=== PATIENT | female | born 1980 | race Caucasian/White ===

== ENCOUNTER 2017-06-28 17:54 | Emergency (ER) | payer MEDICAID ==
[2017-06-28] MEDS ORDERED: HYDROmorphone 1 MG/ML Syringe IVPUSH ONE (18:23)
[2017-06-28] MEDS ORDERED: Ondansetron 4 MG/2 ML SDV IVPUSH ONE ×2 (18:23→19:45)
--- NOTE | 2017-06-28 18:29 | EDM.PDOC ---
ED HPI GENERAL MEDICAL PROBLEM - General Chief Complaint: Abdominal Pain Stated Complaint: ABDOMINAL PAIN Time Seen by Provider: 06/28/17 18:26 Source of Information: Reports: Patient History Limitations: Reports: No Limitations - History of Present Illness INITIAL COMMENTS - FREE TEXT/NARRATIVE: pt had a gastric bypass in 2016 which was done in [place]. Ssuddenly developed acute pain in the rt upper quadrant. She has not vomited. She has had a nela. Onset: Today, Sudden Duration: Hour(s):, Getting Worse Location: Reports: Abdomen, Other ( rt upper abdoman. ) Associated Symptoms: Reports: Other ( severe abdomanal pain. ) - Related Data Allergies Allergy/AdvReac Type Severity Reaction Status Date / Time adhesive tape Allergy Blisters Verified 06/28/17 18:07 cefaclor [From Ceclor] Allergy Abdominal Verified 06/28/17 18:07 Cramps doxycycline Allergy Abdominal Verified 06/28/17 18:07 Cramps Latex, Natural Rubber Allergy Blisters Verified 06/28/17 18:07 morphine Allergy Nausea and Verified 06/28/17 18:07 Vomiting morphine sulfate Allergy Nausea and Verified 06/28/17 18:07 [From Duramorph (PF)] Vomiting Penicillins Allergy Abdominal Verified 06/28/17 18:07 Cramps Home Meds: Home Meds Albuterol [Ventolin HFA] 2 puff INH Q6H PRN 03/02/16 [History] Fluticasone/Salmeterol [Advair 100-50 Diskus] 2 inh INH DAILY 03/02/16 [History] Omeprazole [Omeprazole] 1 tab PO DAILY 03/02/16 [History] metFORMIN [Glucophage] 500 mg PO DAILY 06/28/17 [History] Past Medical History Respiratory History: Reports: Asthma Genitourinary History: Reports: Renal Calculus VP STRATEGY History: Reports: , Spontaneous Psychiatric History: Reports: Anxiety Hematologic History: Reports: B12 Deficiency - Infectious Disease History Infectious Disease History: Reports: Chicken Pox, Measles, Mumps - Past Surgical History GI Surgical History: Reports: Bariatric Procedure, Cholecystectomy Female Surgical History: Reports: Section, Kidney stone extraction, Other (See Below) Other Female Surgeries/Procedures: polycystic ovarian syndrome Social & Family History - Tobacco Use Smoking Status *Q: Never Smoker Second Hand Smoke Exposure: No - Caffeine Use Caffeine Use: Reports: Coffee, Tea - Recreational Drug Use Recreational Drug Use: No ED ROS GENERAL - Review of Systems Review Of Systems: See Below Constitutional: Reports: No Symptoms HEENT: Reports: No Symptoms Respiratory: Reports: No Symptoms Cardiovascular: Reports: No Symptoms Endocrine: Reports: No Symptoms GI/Abdominal: Reports: Abdominal Pain, Other (pt has pain in the rt upper abdoman. ) : Reports: No Symptoms Musculoskeletal: Reports: No Symptoms Skin: Reports: No Symptoms ED EXAM, GI/ABD - Physical Exam Exam: See Below Text/Narrative:: Pt arrived with pain in the rt upper abdoman. She was nauseated. Th pain came on suddenly. Exam Limited By: No Limitations General Appearance: Alert, Anxious, Moderate Distress Eyes: Bilateral: Normal Appearance, EOMI Ears: Normal TMs Nose: Normal Inspection Throat/Mouth: Normal Inspection Head: Atraumatic Neck: Normal Inspection Respiratory/Chest: No Respiratory Distress Cardiovascular: Regular Rate, Rhythm GI/Abdominal Exam: Tender, Other (pt has tenderness in the rt upper abdoman. ) (Female) Exam: Deferred Rectal (Female) Exam: Deferred Back Exam: Normal Inspection Extremities: Normal Inspection Neurological: Alert, Oriented, Normal Cognition Psychiatric: Anxious Course - Vital Signs Last Recorded V/S: Last Vital Signs Temp 36.6 C 06/28/17 18:16 Pulse 75 06/28/17 22:00 Resp 14 06/28/17 22:00 BP 106/62 06/28/17 22:00 Pulse Ox 100 06/28/17 22:00 - Orders/Labs/Meds Orders: Active Orders 24 hr Category Date Time Status Abdomen Ltd [US] Stat Exams 06/28/17 19:06 Taken Abdomen Pelvis w Cont [CT] Stat Exams 06/28/17 20:29 Taken Iopamidol [Isovue-300 (61%)] Med 06/28/17 20:45 Active 140 ml IV . DIRECTED Sodium Chloride 0.9% [Normal Saline] 1,000 ml Med 06/28/17 18:30 Active IV ASDIRECTED Sodium Chloride 0.9% [Normal Saline] 1,000 ml Med 06/28/17 19:45 Active IV ASDIRECTED Sodium Chloride 0.9% [Normal Saline] 80 ml Med 06/28/17 20:45 Active IV ASDIRECTED Sodium Chloride 0.9% [Saline Flush] Med 06/28/17 20:40 Active 10 ml FLUSH ASDIRECTED PRN Medication Orders Sodium Chloride (Normal Saline) 1,000 mls @ 999 mls/hr IV ASDIRECTED ROSALBA Last Admin: 06/28/17 18:37 Dose: 999 mls/hr Sodium Chloride (Normal Saline) 1,000 mls @ 400 mls/hr IV ASDIRECTED ROSALBA Last Admin: 06/28/17 19:52 Dose: 400 mls/hr Sodium Chloride (Normal Saline) 80 mls @ 3 mls/sec IV ASDIRECTED ROSALBA Last Admin: 06/28/17 20:55 Dose: 3 mls/sec Iopamidol (Isovue-300 (61%)) 140 ml IV . DIRECTED ROSALBA Last Admin: 06/28/17 20:55 Dose: 140 ml Sodium Chloride (Saline Flush) 10 ml FLUSH ASDIRECTED PRN PRN Reason: Keep Vein Open Last Admin: 06/28/17 20:55 Dose: 10 ml Labs: Laboratory Tests 06/28/17 06/28/17 06/28/17 Range/Units 18:29 18:29 18:29 WBC 6.8 (4.5-11.0) K/uL RBC 4.63 (3.30-5.50) M/uL Hgb 11.9 L (12.0-15.0) g/dL Hct 38.0 (36.0-48.0) % MCV 82 (80-98) fL MCH 26 L (27-31) pg MCHC 31 L (32-36) % Plt Count 296 (150-400) K/uL Neut % (Auto) 53 (36-66) % Lymph % (Auto) 39 (24-44) % [place] % (Auto) 6 (2-6) % Eos % (Auto) 1 L (2-4) % Baso % (Auto) 0 (0-1) % Sodium 142 (140-148) mmol/L Potassium 3.8 (3.6-5.2) mmol/L Chloride 106 (100-108) mmol/L Carbon Dioxide 25 (21-32) mmol/L Anion Gap 10.9 (5.0-14.0) mmol/L BUN 13 (7-18) mg/dL Creatinine 0.6 (0.6-1.0) mg/dL Est Cr Clr Drug Dosing 126.05 mL/min Estimated GFR (MDRD) > 60 (>60) Glucose 102 (74-106) mg/dL Calcium 8.7 (8.5-10.1) mg/dL Total Bilirubin 0.2 (0.2-1.0) mg/dL AST 19 (15-37) U/L ALT 27 (12-78) U/L Alkaline Phosphatase 74 (46-116) U/L C-Reactive Protein (0.0-0.3) mg/dL Total Protein 7.0 (6.4-8.2) g/dL Albumin 3.7 (3.4-5.0) g/dL Globulin 3.3 (2.3-3.5) g/dL Albumin/Globulin Ratio 1.1 L (1.2-2.2) Amylase 43 (25-115) U/L Lipase 163 (73-393) U/L Urine Color Urine Appearance Urine pH (4.5-8.0) Ur Specific [place] (1.008-1.030) Urine Protein (NEGATIVE) mg/dL Urine Glucose (UA) (NEGATIVE) mg/dL Urine Ketones (NEGATIVE) mg/dL Urine Occult Blood (NEGATIVE) Urine Nitrite (NEGATIVE) Urine Bilirubin (NEGATIVE) Urine Urobilinogen (NORMAL) mg/dL Ur Leukocyte Esterase (NEGATIVE) Urine RBC (0-5) Urine WBC (0-5) Ur Epithelial Cells Amorphous Sediment Urine Bacteria Urine Mucus 06/28/17 06/28/17 Range/Units 18:29 18:41 WBC (4.5-11.0) K/uL RBC (3.30-5.50) M/uL Hgb (12.0-15.0) g/dL Hct (36.0-48.0) % MCV (80-98) fL MCH (27-31) pg MCHC (32-36) % Plt Count (150-400) K/uL Neut % (Auto) (36-66) % Lymph % (Auto) (24-44) % [place] % (Auto) (2-6) % Eos % (Auto) (2-4) % Baso % (Auto) (0-1) % Sodium (140-148) mmol/L Potassium (3.6-5.2) mmol/L Chloride (100-108) mmol/L Carbon Dioxide (21-32) mmol/L Anion Gap (5.0-14.0) mmol/L BUN (7-18) mg/dL Creatinine (0.6-1.0) mg/dL Est Cr Clr Drug Dosing mL/min Estimated GFR (MDRD) (>60) Glucose (74-106) mg/dL Calcium (8.5-10.1) mg/dL Total Bilirubin (0.2-1.0) mg/dL AST (15-37) U/L ALT (12-78) U/L Alkaline Phosphatase (46-116) U/L C-Reactive Protein 0.08 (0.0-0.3) mg/dL Total Protein (6.4-8.2) g/dL Albumin (3.4-5.0) g/dL Globulin (2.3-3.5) g/dL Albumin/Globulin Ratio (1.2-2.2) Amylase (25-115) U/L Lipase (73-393) U/L Urine Color Yellow Urine Appearance Clear Urine pH 6.0 (4.5-8.0) Ur Specific [place] 1.015 (1.008-1.030) Urine Protein Negative (NEGATIVE) mg/dL Urine Glucose (UA) Normal (NEGATIVE) mg/dL Urine Ketones Negative (NEGATIVE) mg/dL Urine Occult Blood Negative (NEGATIVE) Urine Nitrite Negative (NEGATIVE) Urine Bilirubin Negative (NEGATIVE) Urine Urobilinogen Normal (NORMAL) mg/dL Ur Leukocyte Esterase Small (NEGATIVE) Urine RBC 0-5 (0-5) Urine WBC 0-5 (0-5) Ur Epithelial Cells Few Amorphous Sediment Few Urine Bacteria Rare Urine Mucus Few Meds: Medications Generic Name Dose Route Start Last Admin Trade Name Arina PRN Reason Stop Dose Admin Sodium Chloride 1,000 mls @ 999 mls/hr 06/28/17 18:30 06/28/17 18:37 Normal Saline IV 999 mls/hr ASDIRECTED ROSALBA Administration Sodium Chloride 1,000 mls @ 400 mls/hr 06/28/17 19:45 06/28/17 19:52 Normal Saline IV 400 mls/hr ASDIRECTED ROSALBA Administration Sodium Chloride 80 mls @ 3 mls/sec 06/28/17 20:45 06/28/17 20:55 Normal Saline IV 3 mls/sec ASDIRECTED ROSALBA Administration Iopamidol 140 ml 06/28/17 20:45 06/28/17 20:55 Isovue-300 (61%) IV 140 ml . DIRECTED ROSALBA Administration Sodium Chloride 10 ml 06/28/17 20:40 06/28/17 20:55 Saline Flush FLUSH 10 ml ASDIRECTED PRN Administration Keep Vein Open Discontinued Medications Generic Name Dose Route Start Last Admin Trade Name Freq PRN Reason Stop Dose Admin Hydromorphone HCl 1 mg 06/28/17 18:23 06/28/17 18:38 Dilaudid IVPUSH 06/28/17 18:24 1 mg ONETIME ONE Administration Hydromorphone HCl 0.5 mg 06/28/17 19:37 06/28/17 19:51 Dilaudid IVPUSH 06/28/17 19:38 0.5 mg ONETIME ONE Administration Ondansetron HCl 4 mg 06/28/17 18:23 06/28/17 18:32 Zofran IVPUSH 06/28/17 18:24 4 mg ONETIME ONE Administration Ondansetron HCl 4 mg 06/28/17 19:45 06/28/17 19:51 Zofran IVPUSH 06/28/17 19:46 4 mg ONETIME ONE Administration - Re-Assessments/Exams Free Text/Narrative Re-Assessment/Exam: 06/28/17 22:47 pt had normal lab work. She had an US of the upper abdoman. She had a cat scan of the abdoman which was neg except for some periportal edema. She has settle down in terms of the pain. She will follow up with her Dr in [place]. Departure - Departure Time of Disposition: 22:49 Disposition: Home, Self-Care 01 Condition: Fair Clinical Impression: Upper abdominal pain, H/O gastric bypass - Discharge Information Referrals: PCP,None [Primary Care Provider] - Forms: ED Department Discharge Care Plan Goals: follow up with Dr Stack in [facility], Cat scan to be on disc to take with her rtc if pain should get more severe. torodol 10mg q6h prn for pain - My Orders Last 24 Hours: My Active Orders 06/28/17 18:30 Sodium Chloride 0.9% [Normal Saline] 1,000 ml IV ASDIRECTED 06/28/17 19:06 Abdomen Ltd [US] Stat 06/28/17 19:45 Sodium Chloride 0.9% [Normal Saline] 1,000 ml IV ASDIRECTED 06/28/17 20:29 Abdomen Pelvis w Cont [CT] Stat 06/28/17 20:40 Sodium Chloride 0.9% [Saline Flush] 10 ml FLUSH ASDIRECTED PRN 06/28/17 20:45 Iopamidol [Isovue-300 (61%)] 140 ml IV . DIRECTED Sodium Chloride 0.9% [Normal Saline] 80 ml IV ASDIRECTED - Assessment/Plan Last 24 Hours: My Active Orders 06/28/17 18:30 Sodium Chloride 0.9% [Normal Saline] 1,000 ml IV ASDIRECTED 06/28/17 19:06 Abdomen Ltd [US] Stat 06/28/17 19:45 Sodium Chloride 0.9% [Normal Saline] 1,000 ml IV ASDIRECTED 06/28/17 20:29 Abdomen Pelvis w Cont [CT] Stat 06/28/17 20:40 Sodium Chloride 0.9% [Saline Flush] 10 ml FLUSH ASDIRECTED PRN 06/28/17 20:45 Iopamidol [Isovue-300 (61%)] 140 ml IV . DIRECTED Sodium Chloride 0.9% [Normal Saline] 80 ml IV ASDIRECTED
[2017-06-28] MEDS ORDERED: Sodium Chloride 0.9% 1,000 ML IV SCH ×2 (18:30→19:45)
[2017-06-28] MEDS ORDERED: HYDROmorphone 0.5 MG/0.5 ML Syringe IVPUSH ONE (19:37)
[2017-06-28] MEDS ORDERED: Sodium Chloride 0.9% 10 ML Syringe FLUSH PRN (20:40)
[2017-06-28] MEDS ORDERED: Iopamidol 612 MG/ML 150 ML Bottle IV SCH (20:45)
[2017-06-28] MEDS ORDERED: Sodium Chloride 0.9% 80 ML IV SCH (20:45)
[2017-06-28 22:29] VITALS: BP 106/62
[2017-06-28] MEDS ORDERED: LORazepam 2 MG/ML MDV IVPUSH ONE (22:55)
== END 2017-06-29 00:10 | disposition home or self-care (01) ==
LOC: JP.ED 17:54
DX: R10.11 Right upper quadrant pain (principal); Z98.84 Bariatric surgery status; J45.909 Unspecified asthma, uncomplicated; Z79.899 Other long term (current) drug therapy; Z88.1 Allergy status to other antibiotic agents; Z88.0 Allergy status to penicillin; Z88.5 Allergy status to narcotic agent; Z91.040 Latex allergy status; Z91.048 Other nonmedicinal substance allergy status
CPT/HCPCS: 36415; 74177; 76705; 80053; 81001; 82150; 83690; 85025; 86140; 96361; 96374; 96375; 96376; 99284; J1170; J2060; J2405; J7030; J7040; J7050; 99283